=== PATIENT | male | born 1940 | race Caucasian/White ===

== ENCOUNTER → 2017-08-12 10:21 | Outpatient (CLI) | payer MEDICARE, OTHER, SELFPAY ==
[2017-08-12 12:08] LABS: AST(SGOT) 18 U/L (15-37); Alanine Aminotransfer ALT/SGPT 26 U/L (16-61); Alkaline Phosphatase 74 U/L (45-117); Bilirubin, Direct 0.27 mg/dL (0.00-0.30); Cholesterol 151 mg/dL (200); Globulin 3.3 g/dL (2.2-4.2); High Density Lipoprotein 55 mg/dL; Protein, Total 7.3 g/dL (6.4-8.2); Triglycerides 83 mg/dL; Very Low Density Lipoprotein 17 mg/dL (5-40)
== END ==
PROVIDERS: Family Provider Family Medicine; PCP Family Medicine; Visit Provider Internal Medicine Cardiovascular Disease
DX: R00.2 Palpitations (principal); I25.2 Old myocardial infarction
CPT/HCPCS: 36415; 80061; 80076

== ENCOUNTER → 2018-03-28 13:03 | Outpatient (CLI) | payer MEDICARE, OTHER, SELFPAY ==
--- NOTE | 2018-03-28 13:07 | CT_ITS ---
STUDY: CT CHEST WITH CONTRAST REASON FOR EXAM: Male, 77 years old. Follow-up examination for a sending aortic aneurysm. RADIATION DOSAGE (If Supplied By Facility): CTDIvol = ( 11.6 ) mGy, DLP = ( 738.2 ) mGycm TECHNIQUE: Transaxial imaging was performed following intravenous administration of 100 ml of Isovue 300 contrast material. Multiplanar coronal and sagittal images were reformatted. Individualized dose optimization techniques were used for this CT. COMPARISON: Comparison is made with prior examination dated November 11, 2016. FINDINGS: Small bilateral benign appearing axillary lymph nodes. Minimal increase in markings at the lung bases suggestive of atelectasis and/or scarring. There is no demonstrated pleural abnormality. Coronary artery calcification. Normal mediastinum. Normal hilar regions. Normal enhanced pulmonary arteries. The descending thoracic aorta measures 4.6 cm in transverse dimension. There is atherosclerotic calcification of the aortic arch with tortuosity and elongation of the aortic arch and descending thoracic aorta. There are multi-level degenerative changes of the thoracic spine. There is no demonstrated abnormality of the visualized upper abdomen. CT/Chest WITH Contrast IMPRESSION: The ascending thoracic aorta measures 4.6 cm in transverse dimension. The remainder of the examination is unchanged. Electronically Signed: Kaleb Walker MD at 15:25 EST Tel [phone], Service support ,
[2018-03-28 13:25] LABS: CREATININE FINGERSTICK 1.3 mg/dL (0.70-1.30)
--- OUTSIDE RECORDS SUMMARY | 2018-06-29 23:27 | XMS RPT_ITS ---
:1940 Author Organization [place] Support Name Relationship Address Phone LES LISSETH Unavailable [address] + [place] [address] R Unavailable Unavailable Unavailable TENA, SUSAN Unavailable [address] + [place] [address] LISSETH SALDANA Unavailable [address] + [place] [address] R Unavailable Unavailable Unavailable TENA, SUSAN Unavailable [address] + [place] [address] LISSETH SALDANA Unavailable [address] + [place] [address] R Unavailable Unavailable Unavailable TENA, SUSAN Unavailable [address] + [place] [address] LISSETH SALDANA Unavailable [address] + [place] [address] R Unavailable Unavailable Unavailable TENA, SUSAN Unavailable [address] + [place] [address] LISSETH SALDANA Unavailable [address] + [place] [address] R Unavailable Unavailable Unavailable TENA, SUSAN Unavailable [address] + [place] [address] LISSETH SALDANA Unavailable [address] + [place] [address] R Unavailable Unavailable Unavailable TENA, SUSAN Unavailable [address] + [place] [address] LISSETH SALDANA Unavailable [address] + [place] [address] R Unavailable Unavailable Unavailable TENA, SUSAN Unavailable [address] + [place] [address] LISSETH SALDANA Unavailable [address] + [place] [address] R Unavailable Unavailable Unavailable SUSAN TENA Unavailable [address] + [place] [address] Care Team Providers Name Role Phone THIEN ARANDA (SOCIAL SCIENCE TEACHER) Attending Unavailable CORNIELLO, THIEN Huggins (SOCIAL SCIENCE TEACHER) Referring Unavailable CORNIELLO, THIEN L (SOCIAL SCIENCE TEACHER) Referring Unavailable CORNIELLO, THIEN L (SOCIAL SCIENCE TEACHER) Referring Unavailable CORNIELLO, THIEN L (SOCIAL SCIENCE TEACHER) Attending Unavailable STEFFI MAGANA) Attending Unavailable CORNIELLO, THIEN Huggins (SOCIAL SCIENCE TEACHER) Referring Unavailable Moodispaw, Robert Attending Unavailable Moodispaw, Robert Referring Unavailable Elderbrock, Cyrus Primary Care Unavailable Moodispaw, Robert Attending Unavailable Elderbrock, Cyrus Referring Unavailable Menendez, Loulou Attending Unavailable Moodispaw, Robert Attending Unavailable Elderbrock, Cyrus Referring Unavailable Moodispaw, Robert Attending Unavailable Elderbrock, Cyrus Referring Unavailable Menendez, Loulou Attending Unavailable Moodispaw, Robert Attending Unavailable Elderbrock, Cyrus Referring Unavailable Moodispaw, Robert Attending Unavailable Moodispaw, Robert Referring Unavailable Elderbrock, Cyrus Primary Care Unavailable PROBLEMS PROBLEMS DATE TYPE CONDITION / CODE ATTENDING STATUS SOURCE 04/17/2018 Unknown E78.5 - Rboert García Active [facility] Hyperlipidemia, Community unspecified / Hospital E78.5(ICD-10) Repository 04/17/2018 Unknown I25.10 - Robert García Active [facility] Atherosclerotic heart Community disease of [facility] coronary artery Repository without angina pectoris / I25.10(ICD-10) 11/21/2017 Active Vitamin D deficiency, NA Active [facility] unspecified / Clinic Main E55.9(ICD-10) [place] Repository 11/21/2017 Active Peripheral vascular NA Active [facility] disease, unspecified Clinic Main / I73.9(ICD-10) [place] Repository 11/21/2017 Active Pain in right wrist / NA Active [place] M25.531(ICD-10) Clinic Main [place] Repository 08/12/2017 Unknown R00.2 - Palpitations Robert García Active [place] / R00.2(ICD-10) [facility] Repository 08/12/2017 Unknown I25.2 - Old Robert García myocardial infarction Community / I25.2(ICD-10) Hospital Repository 07/22/2017 Unknown Z95.5 - Presence of Robert García coronary angioplasty Community implant and graft / Hospital Z95.5(ICD-10) Repository 07/22/2017 Unknown I47.2 - Ventricular JuancarlosisRobert alvarez tachycardia / Community I47.2(ICD-10) Hospital Repository 07/22/2017 Unknown I71.2 - Thoracic JuancarlosisRobert alvarez aortic aneurysm, Community without rupture / Hospital I71.2(ICD-10) Repository 07/22/2017 Unknown I10 - Essential Robert García (primary) Community hypertension / Hospital I10(ICD-10) Repository PROCEDURES PROCEDURES No Procedure Records FoundRESULTS RESULTS CARDIOLOGY VISIT Observed: 04/17/2018 Status: F Source: [place] REPORT 4:08 PM [facility] REPOSITORY [facility] [facility] [address] [place] [address] OFFICE VISIT Date of Service: 04/17/18 MR#: [id number] Acct: [id number] Name: EL LASSITER Rep #: [id number] : 1940 Provider: Robert García MD Age/Sex: 77/M Location: [facility] Status: Signed HPI HPI Details: EL LASSITER, is a 77 M who presents to the office today for outpatient cardiovascular follow-up. From a cardiac standpoint he denies any ongoing symptoms of classic angina pectoris and there is been no evidence of overt CHF or pulmonary edema. There has been no near syncope or syncope. His lipid labs were checked in August 2017. They were under good control at that time. He has not had them checked since that time. He did have a chest CT scan performed in March 2018. His thoracic aorta-a sending-measured 4.6 cm. Intake Vital Signs04/17/18 Height 5 ft 9 in 04/17/18 Weight: 217 lb 04/17/18 Body Mass Index (BMI) 32.0 04/17/18 Blood Pressure 110/64 Intake Visit Reasons: 9 M FU Allergies atorvastatin [From Lipitor] Adverse Reaction (Severe, Verified 04/17/18 15:30) Heartburn, Itching Medications Aspirin [Aspirin, Baby] 81 mg PO DAILY@0800 10/26/14 [History Confirmed 04/17/18] levothyroxine 50 mcg capsule 50 mcg PO QDAY cap 06/10/17 [History Confirmed 04/17/18] metoprolol tartrate 25 mg tablet 25 mg PO .COMPLEX 06/10/17 [History Confirmed 04/17/18] nitroglycerin 0.4 mg sublingual tablet 0.4 mg SUBLINGUAL Q5M PRN 06/10/17 [History Confirmed 04/17/18] pravastatin 10 mg tablet 10 mg PO QHS 07/21/17 [History Confirmed 04/17/18] methylsulfonylmethane 1,000 mg capsule 1,000 mg PO ONCE PRN cap 07/22/17 [History Confirmed 04/17/18] multivitamin,yb-uhli-zcbakgni 27 mg-0.4 mg tablet 0.5 tab PO DAILY ea 07/22/17 [History Confirmed 04/17/18] aloe vera 25 mg capsule 600 mg PO DAILY PRN cap 04/17/18 [History Confirmed 04/17/18] cholecalciferol (vitamin D3) 1,000 unit tablet 1,000 unit PO DAILY 04/17/18 [History Confirmed 04/17/18] [facility] Medical History Nonsustained ventricular tachycardia (Acute) Old myocardial infarction (Acute) Palpitations (Acute) Thoracic aortic aneurysm (Chronic) Atherosclerotic heart disease of [place] coronary artery without angina pectoris (Chronic) Hypothyroidism (Chronic) HTN (hypertension) (Chronic) HLD (hyperlipidemia) (Chronic) SADAF (obstructive sleep apnea) (Acute) Paroxysmal ventricular tachycardia (Acute) Surgical History Presence of stent in coronary artery (Chronic) S/P LASIK surgery (Resolved) Postsurgical percutaneous transluminal coronary angioplasty (PTCA) status (Chronic) Cyst of left breast (Resolved) History of cholecystectomy (Resolved) History of lymph node biopsy (Resolved) Family History Mother CAD (coronary artery disease) Brother CAD (coronary artery disease) Myocardial infarction Social History Smoking Status: Former smoker alcohol intake: never substance use type: does not use ROS Const Const: Negative for fatigue, weakness, weight gain, weight loss, frequent falls or excessive sweating Eyes Eyes: Negative for change in vision, blurry vision or transient loss of vision ENT ENT: Negative for dizziness or balance problems Cardio Chest Pain: No Palpitations: No Edema: None Muscle aches with walking: None Resp Respiratory: Positive for SOB with activity (occasional, baseline); negative for SOB at rest GI GI: Negative vomiting or vomiting blood/hematemesis : Negative for hematuria Musc Musc: Negative for balance problems, muscle aches/ myalgia, muscle weakness or joint pain Skin Skin: Negative non-healing lesions or rash Neuro Neuro: Negative for weakness, blurry vision, dizziness, lightheadedness, frequent falls or orthostatic symptoms Roderick Hematologic/Lymphatic: Negative for easy bleeding Endo Endo: Negative for fatigue or excessive sweating Psych Psych: Negative for anxiety or depression Allergy Allergy/Immunology: Negative for hives, Negative for rash Cardiology Exam Const Appearance: cooperative, healthy appearing, comfortable, no acute distress, well developed and well groomed Nutritional Appearance: average body habitus, well nourished and overweight Head Head: normal to inspection, normocephalic and atraumatic Ears: hearing grossly normal bilaterally Nose: external nose normal Face and Sinus: face symmetric Mouth: oral mucosae normal Teeth and gingiva: fair dentition Eyes Eyelids: eyelids normal Conjunctivae: conjunctivae normal Pupils: PERRL EOM: EOM intact bilaterally Neck Neck: normal visual inspection and full ROM Carotids: normal carotid upstroke Chest Chest inspection: normal inspection of the chest, symmetric chest movement and respiratory distress Auscultation: Bilateral: Clear to Auscultation Cardio Palpation: normal PMI Rhythm: regular rhythm Heart sounds: S1 normal and S2 normal GI GI: normal to inspection, soft and bowel sounds present Neuro General: alert, awake, oriented x3 and moves all extremities Skin Skin: no rashes or lesions noted Extremities Pulses: Normal: Right Radial Pulse, Left Radial Pulse Lower Extremity Edema: None: Bilateral Psych Psychological: normal affect Assessment AND Plan 1. Atherosclerosis of [place] coronary artery of [place] heart without angina pectoris I25.10 PTCA/stent to OM and prox CX 09/29/01; PTCA/BMS to D1 and CHALO to LAD 03/28/09 Plan At the present time he appears to be doing well with no acute symptoms or adverse events. He will continue medical management. Orders Orders: 2. Presence of stent in coronary artery Z95.5 PTCA/stent to OM and prox CX 09/29/01; PTCA/BMS to D1 and CHALO to LAD 03/28/09 Plan He does have previous PCI as previously noted. He will continue medical management 3. Nonsustained ventricular tachycardia I47.2 Plan He has a history of ventricular ectopy. He is undergone noninvasive and invasive evaluation in the past. He has been treated with medical therapy and revascularization. He has been doing well with no obvious symptomatic events 4. Hyperlipidemia, unspecified hyperlipidemia type E78.5 Plan He will be scheduled for future fasting lipid and hepatic profile to monitor his lipid studies and his hepatic labs. Orders Orders: 5. Essential hypertension I10 Plan His blood pressure appears to be well controlled at this time. He will continue medical management. 6. Thoracic aortic aneurysm without rupture I71.2 Plan He does have an ascending aortic aneurysm. It was recently evaluated. There were no obvious complicating factors. He will continue to be followed. Plan Detail Additional Comments Thank you for allowing me to participate in the care of your patient. Please don't hesitate to call if any issues arise. This note was generated using a voice recognition system and there may be incorrect words, spelling or punctuation that were not noted when reviewing the office note prior to saving. Follow Up 6 Months (PFM) Coding Level of Care Code Off vis,est,level 4 Diagnoses Atherosclerosis of [place] coronary artery of [place] heart without angina pectoris I25.10 [place] vs. transplanted heart: [place] heart Presence of stent in coronary artery Z95.5 Nonsustained ventricular tachycardia I47.2 Hyperlipidemia, unspecified hyperlipidemia type E78.5 Hyperlipidemia type: unspecified Essential hypertension I10 Hypertension type: essential hypertension Thoracic aortic aneurysm without rupture I71.2 Presence of rupture: without rupture Coding Level of Care Code Off vis,est,level 4 Diagnoses Atherosclerosis of [place] coronary artery of [place] heart without angina pectoris I25.10 [place] vs. transplanted heart: [place] heart Presence of stent in coronary artery Z95.5 Nonsustained ventricular tachycardia I47.2 Hyperlipidemia, unspecified hyperlipidemia type E78.5 Hyperlipidemia type: unspecified Essential hypertension I10 Hypertension type: essential hypertension Thoracic aortic aneurysm without rupture I71.2 Presence of rupture: without rupture Supplemental Info Supplemental Information Labs LDL Cholesterol 79 mg/dL (0-130) 08/12/17 HDL Cholesterol 55 mg/dL (40-) 08/12/17 Triglycerides 83 mg/dL (-199) 08/12/17 VLDL Cholesterol 17 mg/dL (5-40) 08/12/17 Diagnostics Echocardiogram 09/10/14 04/17/18 1608 <Electronically signed by Robert García MD> Date Robert García MD Cosigner Signature: Date (if applicable) CC: Cyrus Sands MD CREATININE FINGERSTICK Collected: 03/28/2018 Status: F Source: [place] 1:14 PM [facility] [place] TYPE CODE TESTS RESULT OUT OF RANGE REFERENCE UNITS LAB L9100.0210 0.70-1.30 mg/dL Normal CREATININE WB 1.3 Performed By: #### L9100.0200 #### [facility] Point of Care [address] [place] [address] CHEST WITH CONTRAST Observed: 03/28/2018 Status: F Source: [place] 1:07 PM [facility] [place] [facility] Services [address] [place] [address] Chest WITH Contrast MR#: [id number] Acct: [id number] Name: EL LASSITER Rep #: [id number] : 1940 M 77 From: Kaleb Walker MD PCP: Cyrus Sands MD Status: REG CLI Study: Chest WITH Contrast Date of Exam: 03/28/18 Exam# [id number] Ordering Dr: Robert García MD STUDY: CT CHEST WITH CONTRAST REASON FOR EXAM: Male, 77 years old. Follow-up examination for a sending aortic aneurysm. RADIATION DOSAGE (If Supplied By Facility): CTDIvol = ( 11.6 ) mGy, DLP = ( 738.2 ) mGycm TECHNIQUE: Transaxial imaging was performed following intravenous administration of 100 ml of Isovue 300 contrast material. Multiplanar coronal and sagittal images were reformatted. Individualized dose optimization techniques were used for this CT. COMPARISON: Comparison is made with prior examination dated November 11, 2016. FINDINGS: Small bilateral benign appearing axillary lymph nodes. Minimal increase in markings at the lung bases suggestive of atelectasis and/or scarring. There is no demonstrated pleural abnormality. Coronary artery calcification. Normal mediastinum. Normal hilar regions. Normal enhanced pulmonary arteries. The descending thoracic aorta measures 4.6 cm in transverse dimension. There is atherosclerotic calcification of the aortic arch with tortuosity and elongation of the aortic arch and descending thoracic aorta. There are multi-level degenerative changes of the thoracic spine. There is no demonstrated abnormality of the visualized upper abdomen. CT/Chest WITH Contrast IMPRESSION: The ascending thoracic aorta measures 4.6 cm in transverse dimension. The remainder of the examination is unchanged. 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 Multiple benign nevi of upper and lower extremities, and trunk These diagnoses are benign, chronic, requiring only observation at this time. Patient will monitor for changes or symptoms and contact us. Follow-up as noted below or as needed. Chief Complaint: Patient presents with: Skin Check Subjective and Objective HPI: El Lassiter is a 77 year old male who presents for: Skin check. Desires: Total body skin check History of skin cancer?: No Lesions of particular concern?: No. PAST MEDICAL HISTORY Diagnosis Date - Anxiety - Aortic aneurysm (HCC) - Essential hypertension, benign - Heart attack (HCC) 2001 - Pneumonia 4-5 times, has scar tissue on lungs - Thyroid condition Current Outpatient Prescriptions on File Prior to Visit: pravastatin (PRAVACHOL) 10 mg tablet TAKE 1 TABLET BY MOUTH AT BEDTIME. levothyroxine (SYNTHROID) 100 mcg tablet TAKE ONE-HALF TABLET BY MOUTH EVERY DAY Saw Balaton 160 mg capsule Take 160 mg by mouth twice daily. as needed royal jelly 500 mg cap Take by mouth. as needed cholecalciferol (VITAMIN D3) 2,000 unit tablet Take 1 tablet by mouth twice daily. (Patient taking differently: Take 2,000 Units by mouth twice daily. 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 as needed multivitamin tablet Take 1 tablet by mouth once daily. COMPOUNDED PRESCRIPTION Take 1 tablet by mouth once daily. Vit C 240mg daily nitroglycerin sublingual 0.4 mg SUBLINGUAL SL tablet Dissolve 0.4 mg under the tongue every 5 minutes as needed. clopidogrel (PLAVIX) 75 mg ORAL tablet Take 37.5 mg by mouth once daily. MEDICATION, NON-DATABASE Loy MSM supplement Aspirin 81 mg ORAL Tab Take 40.5 mg by mouth. krjyuhjo-ajvlfpfjo-ewjhvbfgadaeey (CORTISPORIN) otic solution Use 3 Drops in both ears four times daily. (Patient not taking: Reported on 12/06/2017 ) COMPOUNDED PRESCRIPTION Taking Energy B 12 daily No current facility-administered medications on file prior to visit. ROS: General: Does the patient feel generally well? Yes Skin: Any other skin lesions of concern? No Any other ongoing rashes or itching? No Physical Exam: General: The patient appears generally well, non-toxic, and in no distress. Skin: The following areas were inspected and/or palpated and were unremarkable except as noted below: Scalp and hair; head (including the face and ears); neck;, chest (including breasts and axillae); abdomen; genitalia, groin, and buttocks; back; right upper extremity; left upper extremity; right lower extremity; left lower extremity; as well as the apocrine and eccrine glands which were inspected. Eyes: Inspection of conjunctivae and lids revealed no tumors or injection. Ears, Nose, Mouth and Throat: Inspection of the lips was unremarkable. Cardiovascular: Examination of peripheral vascular system by observation and palpation demonstrated no edema, infarcts or tenderness and was otherwise unremarkable. Extremities: Inspection and palpation of digits and nails demonstrated no infarcts, clubbing or other lesions. Neurological/Psychiatric: The patient's mood and affect are unremarkable, and appears oriented to person, place and knows date of . Positive findings: -scattered hyperpigmented macules on the torso, bilateral upper extremities and bilateral lower extremities. These are small, evenly hyperpigmented and regularly bordered with internal consistency between the lesions. -scattered fleshy papules on the torso. -scattered villagran red papules on the torso. -scattered hyperkeratotic, stuck on papules on the Face, back, bilateral lower extremities. Right medial back -- unremarkable. Previous biopsy sites on the superior chest and left forearm are healing well. Attending signature: Steffi Magana MD This note is completed at 3:26 PM on 12/06/2017 and reflects the services provided at the time of the appointment. I agree with the Chief Complaint, ROS, and Past Histories independently gathered by the clinical application support technician. CNOV Observed: 12/06/2017 Status: COMPLETED Source: [place] 2:40 PM [facility] REPOSITORY Office Visit (DERMST) EL LASSITER ([id number]) 1940 M Date Time Provider Department 12/06/17 2:40 PM STEFFI MAGANA) DERMST During your visit today, we recorded the following information about you: Steffi Magana MD 12/06/2017 3:27 PM Signed Department of Dermatology Steffi Magana MD 12/06/2017 Last visit in Dermatology: Visit date not found Assessment/Plan Problem List Items Addressed This Visit None Visit Diagnoses Seborrheic keratoses - Primary Capillary angioma Notalgia paresthetica Discussed use of capsaicin cream, pt asks about CBD products, but I have no data supporting their use. Multiple benign nevi of upper and lower extremities, and trunk These diagnoses are benign, chronic, requiring only observation at this time. Patient will monitor for changes or symptoms and contact us. Follow-up as noted below or as needed. Chief Complaint: Patient presents with: Skin Check Subjective and Objective HPI: El Lassiter is a 77 year old male who presents for: Skin check. Desires: Total body skin check History of skin cancer?: No Lesions of particular concern?: No. PAST MEDICAL HISTORY Diagnosis Date - Anxiety - Aortic aneurysm (HCC) - Essential hypertension, benign - Heart attack (HCC) 2001 - Pneumonia 4-5 times, has scar tissue on lungs - Thyroid condition Current Outpatient Prescriptions on File Prior to Visit: pravastatin (PRAVACHOL) 10 mg tablet TAKE 1 TABLET BY MOUTH AT BEDTIME. levothyroxine (SYNTHROID) 100 mcg tablet TAKE ONE-HALF TABLET BY MOUTH EVERY DAY Saw Balaton 160 mg capsule Take 160 mg by mouth twice daily. as needed royal jelly 500 mg cap Take by mouth. as needed cholecalciferol (VITAMIN D3) 2,000 unit tablet Take 1 tablet by mouth twice daily. (Patient taking differently: Take 2,000 Units by mouth twice daily. 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 as needed multivitamin tablet Take 1 tablet by mouth once daily. COMPOUNDED PRESCRIPTION Take 1 tablet by mouth once daily. Vit C 240mg daily nitroglycerin sublingual 0.4 mg SUBLINGUAL SL tablet Dissolve 0.4 mg under the tongue every 5 minutes as needed. clopidogrel (PLAVIX) 75 mg ORAL tablet Take 37.5 mg by mouth once daily. MEDICATION, NON-DATABASE Loy MSM supplement Aspirin 81 mg ORAL Tab Take 40.5 mg by mouth. zyomzosv-fljtichmw-chozfoablducec (CORTISPORIN) otic solution Use 3 Drops in both ears four times daily. (Patient not taking: Reported on 12/06/2017 ) COMPOUNDED PRESCRIPTION Taking Energy B 12 daily No current facility-administered medications on file prior to visit. ROS: General: Does the patient feel generally well? Yes Skin: Any other skin lesions of concern? No Any other ongoing rashes or itching? No Physical Exam: General: The patient appears generally well, non-toxic, and in no distress. Skin: The following areas were inspected and/or palpated and were unremarkable except as noted below: Scalp and hair; head (including the face and ears); neck;, chest (including breasts and axillae); abdomen; genitalia, groin, and buttocks; back; right upper extremity; left upper extremity; right lower extremity; left lower extremity; as well as the apocrine and eccrine glands which were inspected. Eyes: Inspection of conjunctivae and lids revealed no tumors or injection. Ears, Nose, Mouth and Throat: Inspection of the lips was unremarkable. Cardiovascular: Examination of peripheral vascular system by observation and palpation demonstrated no edema, infarcts or tenderness and was otherwise unremarkable. Extremities: Inspection and palpation of digits and nails demonstrated no infarcts, clubbing or other lesions. Neurological/Psychiatric: The patient's mood and affect are unremarkable, and appears oriented to person, place and knows date of . Positive findings: -scattered hyperpigmented macules on the torso, bilateral upper extremities and bilateral lower extremities. These are small, evenly hyperpigmented and regularly bordered with internal consistency between the lesions. -scattered fleshy papules on the torso. -scattered villagran red papules on the torso. -scattered hyperkeratotic, stuck on papules on the Face, back, bilateral lower extremities. Right medial back -- unremarkable. Previous biopsy sites on the superior chest and left forearm are healing well. Attending signature: Steffi Magana MD This note is completed at 3:26 PM on 12/06/2017 and reflects the services provided at the time of the appointment. I agree with the Chief Complaint, ROS, and Past Histories independently gathered by the clinical application support technician. Aiyana Badillo АННА 12/06/2017 3:29 PM Addendum Thank you for allowing me to examine you for signs of skin cancer today. We had an opportunity to discuss my findings and any treatments I recommended. I believe that there are several steps that a person can do to help prevent skin cancers and to detect them at an early, treatable stage: 1) I highly recommend that once a month you perform your own complete skin check looking for changing or unusual spots. Use a wall-mounted mirror and a hand mirror to assist in seeing body areas that are difficult to see otherwise. If you have a family member that can assist, this is often helpful. Additional information can be obtained at www.skincancer.org/okdm-kuzcgy-feghiyzyrrv/early-detection 2) In many cases, skin cancer can be prevented. The best way to protect yourself is to avoid too much sun and sunburns. Health care providers believe that ultraviolet rays (UV rays) from the sun damage the skin and over time lead to skin cancer. Here are ways to protect yourself: -Don't spend long periods of time in direct sunlight. -Wear hats with brims to protect your face and ears. -Wear long-sleeved shirts and pants to protect your arms and legs. -Use broad spectrum sunscreens with a SPF (skin protection factor) of 30 or higher that protect against burning and tanning rays. Apply the lotion 30 minutes before you go outside. (Broad-spectrum sunscreens protect against UV-B and UV-A rays.) -Wear sunglasses to protect your eyes. -Use a lip balm with sunscreen. -Avoid the sun between 10am and 4pm. -Show any changing mole to your health care provider. Q: How do I obtain a follow-up appointment in 12 months with the dermatology team at the [facility]? A: About 3 months prior to your desired appointment time, please contact our appointment center to request an appointment with the [facility]. You can either: * Call the central appointment number: [phone] * Request an appointment online at: [email or web address] Use your truedash appointment request function All of the clinical staff at [facility] work together as a closely-knit team to provide our patients the very best dermatologic care. Your follow-up appointment may be scheduled with one of our highly-trained Nurse Practitioners or Physician Assistants. 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 Multiple benign nevi of upper and lower extremities, and trunk [D22.70, D22.5, D22.60] Prescriptions as of 12/06/2017 Sig: PRAVASTATIN 10 MG TABLET TAKE 1 TABLET BY MOUTH AT BED* LEVOTHYROXINE 100 MCG TABLET TAKE ONE-HALF TABLET BY MOUTH* SAW PALMETTO 160 MG CAPSULE Take 160 mg by mouth twice da* ROYAL JELLY 500 MG CAPSULE Take by mouth. as needed CHOLECALCIFEROL (VITAMIN D3) * Take 1 tablet by mouth twice * Patient taking differently: Take 2,000 Units by mouth twi* COMPOUNDED PRESCRIPTION Please evaluate and adjust Bi* ALOE VERA ORAL Take by mouth once daily. as * * MULTIVITAMIN TABLET Take 1 tablet by mouth once d* * COMPOUNDED PRESCRIPTION Take 1 tablet by mouth once d* * NITROGLYCERIN 0.4 MG SUBLINGU* Dissolve 0.4 mg under the ton* * CLOPIDOGREL 75 MG TABLET Take 37.5 mg by mouth once da* * MEDICATION, NON-DATABASE Loy MSM supplement * ASPIRIN 81 MG TABLET Take 40.5 mg by mouth. UZJIUSQH-NHVCLJBIU-YTHEMACCA * Use 3 Drops in both ears four* Patient not taking: Reported on 12/06/2017 COMPOUNDED PRESCRIPTION Taking Energy B 12 daily Problem List As Of Date 12/06/2017 Noted Resolved Unspecified hypothyroidism [E03.9] INVALID FOR* CAD (coronary artery disease) [I25.10] INVALID FOR* Presence of stent in coronary artery [Z95.5] INVALID FOR* Aortic aneurysm [I71.9] INVALID FOR* Other and unspecified hyperlipidemia [E78.5] INVALID FOR* SADAF (obstructive sleep apnea) [G47.33] INVALID FOR* Depression [F32.9] INVALID FOR* Other instructions from your clinician: Thank you for allowing me to examine you for signs of skin cancer today. We had an opportunity to discuss my findings and any treatments I recommended. I believe that there are several steps that a person can do to help prevent skin cancers and to detect them at an early, treatable stage: 1) I highly recommend that once a month you perform your own complete skin check looking for changing or unusual spots. Use a wall-mounted mirror and a hand mirror to assist in seeing body areas that are difficult to see otherwise. If you have a family member that can assist, this is often helpful. Additional information can be obtained at www.skincancer.org/jsuq-ucotwf-jzllkgmjqho/early-detection 2) In many cases, skin cancer can be prevented. The best way to protect yourself is to avoid too much sun and sunburns. Health care providers believe that ultraviolet rays (UV rays) from the sun damage the skin and over time lead to skin cancer. Here are ways to protect yourself: -Don't spend long periods of time in direct sunlight. -Wear hats with brims to protect your face and ears. -Wear long-sleeved shirts and pants to protect your arms and legs. -Use broad spectrum sunscreens with a SPF (skin protection factor) of 30 or higher that protect against burning and tanning rays. Apply the lotion 30 minutes before you go outside. (Broad-spectrum sunscreens protect against UV-B and UV-A rays.) -Wear sunglasses to protect your eyes. -Use a lip balm with sunscreen. -Avoid the sun between 10am and 4pm. -Show any changing mole to your health care provider. Q: How do I obtain a follow-up appointment in 12 months with the dermatology team at the [facility]? A: About 3 months prior to your desired appointment time, please contact our appointment center to request an appointment with the [facility]. You can either: * Call the central appointment number: [phone] * Request an appointment online at: [email or web address] * Use your truedash appointment request function All of the clinical staff at [facility] work together as a closely-knit team to provide our patients the very best dermatologic care. Your follow-up appointment may be scheduled with one of our highly-trained Nurse Practitioners or Physician Assistants. Disposition: Return in 12 months (on 12/06/2018) for Skin Check. Follow-up and Disposition History Recorded Encounter Status:Closed by STEFFI MAGANA MD on 12/06/17 SURGICAL PATHOLOGY Observed: 11/29/2017 Status: F Source: [place] 12:24 PM [facility] REPOSITORY Specimen originated from [facility] Specimen #: [id number] Submitting Physician: THIEN ARANDA CNP FINAL DIAGNOSIS A. 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 B. Skin, left forearm, shave biopsy - Seborrheic keratosis. MELI/michele 11/30/2017 Elza Edouard M.D. (Electronic Signature) SPECIMEN SUBMITTED A: SKIN, NECK, SHAVE BIOPSY B: SKIN, LEFT FOREARM, SHAVE BIOPSY CLINICAL DATA lesion discoloration and irregular borders GROSS DESCRIPTION A. Received in formalin is a 1.0 x 0.9 x 0.1 cm shave of skin. On the skin surface is a 0.9 cm, brown flat area. The specimen is bisected. Totally submitted in formalin in one cassette. B. Received in formalin is a 0.8 x 0.4 x 0.1 cm shave of skin. On the skin surface is a 0.2 cm, brown flat area. The specimen is bisected. Totally submitted in formalin in one cassette. Gross examination performed at [facility], [address] [place] [address] MMD 11/30/2017 2:04:54 AM Date of Report: 11/30/2017 Date of Procedure: 11/29/2017 Date of Receipt: 11/29/2017 Submitted by: THIEN ARANDA CNP Location: [facility] Diagnostic interpretation performed at [facility], [address] [place] [address]. PROGRESS Observed: 11/29/2017 Status: COMPLETED Source: [place] 12:15 PM [facility] REPOSITORY HNO ID: [id number] Author: Thien Huggins (Celia) Rosi Service: (none) Author Type: Nurse Practitioner Type: Progress Notes Filed: 11/29/2017 12:28 PM Note Text: HPI/CC: El Lassiter is a 77 year old male who presents for Recheck (review results) and skin biopsies (2 spots- neck, L forearm) Also would like to review recent labs, PVRs and xrays. The following were reviewed with patient. Normal bilateral ABIs- 11/23/2017 Xray of right hand shows mild arthritis Component Latest Ref Rng AND Units 11/21/2017 WBC 3.70 - 11.00 k/uL 6.78 RBC 4.20 - 6.00 m/uL 5.01 Hemoglobin 13.0 - 17.0 g/dL 15.7 Hematocrit 39.0 - 51.0 % 47.0 MCV 80.0 - 100.0 fL 93.8 MCH 26.0 - 34.0 pG 31.3 MCHC 30.5 - 36.0 g/dL 33.4 RDW-CV 11.5 - 15.0 % 13.2 Platelet Count 150 - 400 k/uL 209 MPV 9.0 - 12.7 fL 10.2 Neut% % 66.9 Abs Neut (ANC) 1.45 - 7.50 k/uL 4.51 Lymph% % 24.8 Abs Lymph 1.00 - 4.00 k/uL 1.68 Garland% % 7.2 Abs Garland <0.87 k/uL 0.49 Eosin% % 0.7 Abs Eosin <0.46 k/uL 0.05 Baso% % 0.4 Abs Baso <0.11 k/uL 0.03 Nucleated Reds 0 /100 WBC 0.1 (H) Absolute nRBC <0.01 k/uL 0.01 (H) Diff Type Auto Diff Protein, Total 6.3 - 8.0 g/dL 6.8 Albumin 3.9 - 4.9 g/dL 4.2 Calcium 8.5 - 10.2 mg/dL 9.1 Bilirubin, Total 0.2 - 1.3 mg/dL 2.6 (H) Alkaline Phosphatase 36 - 108 U/L 70 AST 14 - 40 U/L 18 Glucose 74 - 99 mg/dL 99 BUN 9 - 24 mg/dL 13 Creatinine 0.73 - 1.22 mg/dL 1.00 Sodium 136 - 144 mmol/L 140 Potassium 3.7 - 5.1 mmol/L 4.3 Chloride 97 - 105 mmol/L 103 CO2 22 - 30 mmol/L 23 Anion Gap 9 - 18 mmol/L 14 ALT 10 - 54 U/L 18 eGFR- >60 eGFR-All Other Races . >60 Vitamin D 25 Hydroxy 31.0 - 80.0 ng/mL 22.5 (L) Continues to have left ear discomfort. 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 pravastatin (PRAVACHOL) 10 mg tablet TAKE 1 TABLET BY MOUTH AT BEDTIME. levothyroxine (SYNTHROID) 100 mcg tablet TAKE ONE-HALF TABLET BY MOUTH EVERY DAY Saw Balaton 160 mg capsule Take 160 mg by mouth twice daily. as needed royal jelly 500 mg cap Take by mouth. as needed cholecalciferol (VITAMIN D3) 2,000 unit tablet Take 1 tablet by mouth twice daily. (Patient taking differently: Take 2,000 Units by mouth twice daily. holding ) COMPOUNDED PRESCRIPTION Please evaluate and adjust BiPAP supplies/maskDx: G47.3 COMPOUNDED PRESCRIPTION Taking Energy B 12 daily ALOE VERA ORAL Take by mouth once daily. as needed multivitamin tablet Take 1 tablet by mouth once daily. COMPOUNDED PRESCRIPTION Take 1 tablet by mouth once daily. Vit C 240mg daily nitroglycerin sublingual 0.4 mg SUBLINGUAL SL tablet Dissolve 0.4 mg under the tongue every 5 minutes as needed. clopidogrel (PLAVIX) 75 mg ORAL tablet Take 37.5 mg by mouth once daily. MEDICATION, NON-DATABASE Loy MSM supplement Aspirin 81 mg ORAL Tab Take 40.5 mg by mouth. No current facility-administered medications on file prior to visit. ALLERGIES Allergen Reactions - Cleaning Products [* Other: See Comments Runny nose, cough ROS: See HPI PE/Assessment:: BP 128/84 Pulse 72 Resp 16 Wt 95.3 kg (210 lb) BMI 31.47 kg/m? General appearance: tired/ill appearing, in no acute distress, obese Skin: upper mid sternal skin discoloration, irregular color and borders, no s/s of infection or drainage. Measures 0.25in x 0.25in. Left distal forearm skin discoloration, irregular color and borders, no s/s of infection or drainage. Also measures 0.25in x 0.25in. Ear: normal canal and TM UNIVERSAL PROTOCOL / SAFETY CHECKLIST Procedure to be performed: skin biopsy x 2 Sign in Communication: Completed Time Out: Team Confirms the Correct Patient, Correct Procedure, Correct Site and Site Marking, Correct Position (if applicable), Prep and Dry Time (if applicable). Affirmation of Time Out: YES Sign Out Discussion: Completed Thien Aranda APRN.CELIA Procedure: The risks, benefits and anticipated outcomes of the procedure, the risks and benefits of the alternatives to the procedure, and the roles and tasks of the personnel to be involved, were discussed with the patient, and the patient consents to the procedure and agrees to proceed. ? The area was cleaned and prepped in a semi sterile fashion 1 specimen for pathology. Written and verbal wound care instructions given. ASSESSMENT/PLAN: 1. Skin lesions - ICD9: 709.9, ICD10: L98.9 (primary diagnosis) - shave biopsy completed x 2, patient tolerated well - see patient instructions- reviewed home care and when to follow up - samples sent to pathology 2. Vitamin D deficiency - ICD9: 268.9, ICD10: E55.9 - restart vit D BID and recheck in 3 months - VITAMIN D 25 HYDROXY 3. Left ear pain - ICD9: 388.70, ICD10: H92.02 - normal ear -f/u PRN Thien Aranda APRN.CNP CNOV Observed: 11/29/2017 Status: COMPLETED Source: [place] 11:00 [facility] REPOSITORY Office Visit (FAMPWS) EL LASSITER ([id number]) 1940 M Date Time Provider Department 11/29/17 11:00 AM TH[facility] ARANDA [facility]CELIA[facility] During your visit today, we recorded the following information about you: Pulse Respiration Blood pressure Weight 72/minute 16/minute 128/84 95.3 kg Thien Aranda APRN.CNP 11/29/2017 12:03 PM Signed Open wounds???The biopsy done today will heal from the bottom up and sides inward. Remove the adhesive bandage in 12 to 24 hours and clean it twice per day with soap and water. Apply a thin coat of Aquaphor then cover with an adhesive bandage. This type of wound heals faster when covered. If you have a lot of itching, redness, drainage of pus, swelling, or pain, call the office. Acetaminophen or ice packs may be used for pain control. Thien Aranda APRN.CNP 11/29/2017 12:28 PM Signed HPI/CC: El A Karina is a 77 year old male who presents for Recheck (review results) and skin biopsies (2 spots- neck, L forearm) Also would like to review recent labs, PVRs and xrays. The following were reviewed with patient. Normal bilateral ABIs- 11/23/2017 Xray of right hand shows mild arthritis Component Latest Ref Rng AND Units 11/21/2017 WBC 3.70 - 11.00 k/uL 6.78 RBC 4.20 - 6.00 m/uL 5.01 Hemoglobin 13.0 - 17.0 g/dL 15.7 Hematocrit 39.0 - 51.0 % 47.0 MCV 80.0 - 100.0 fL 93.8 MCH 26.0 - 34.0 pG 31.3 MCHC 30.5 - 36.0 g/dL 33.4 RDW-CV 11.5 - 15.0 % 13.2 Platelet Count 150 - 400 k/uL 209 MPV 9.0 - 12.7 fL 10.2 Neut% % 66.9 Abs Neut (ANC) 1.45 - 7.50 k/uL 4.51 Lymph% % 24.8 Abs Lymph 1.00 - 4.00 k/uL 1.68 Garland% % 7.2 Abs Garland <0.87 k/uL 0.49 Eosin% % 0.7 Abs Eosin <0.46 k/uL 0.05 Baso% % 0.4 Abs Baso <0.11 k/uL 0.03 Nucleated Reds 0 /100 WBC 0.1 (H) Absolute nRBC <0.01 k/uL 0.01 (H) Diff Type Auto Diff Protein, Total 6.3 - 8.0 g/dL 6.8 Albumin 3.9 - 4.9 g/dL 4.2 Calcium 8.5 - 10.2 mg/dL 9.1 Bilirubin, Total 0.2 - 1.3 mg/dL 2.6 (H) Alkaline Phosphatase 36 - 108 U/L 70 AST 14 - 40 U/L 18 Glucose 74 - 99 mg/dL 99 BUN 9 - 24 mg/dL 13 Creatinine 0.73 - 1.22 mg/dL 1.00 Sodium 136 - 144 mmol/L 140 Potassium 3.7 - 5.1 mmol/L 4.3 Chloride 97 - 105 mmol/L 103 CO2 22 - 30 mmol/L 23 Anion Gap 9 - 18 mmol/L 14 ALT 10 - 54 U/L 18 eGFR- >60 eGFR-All Other Races . >60 Vitamin D 25 Hydroxy 31.0 - 80.0 ng/mL 22.5 (L) Continues to have left ear discomfort. 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 pravastatin (PRAVACHOL) 10 mg tablet TAKE 1 TABLET BY MOUTH AT BEDTIME. levothyroxine (SYNTHROID) 100 mcg tablet TAKE ONE-HALF TABLET BY MOUTH EVERY DAY Saw Balaton 160 mg capsule Take 160 mg by mouth twice daily. as needed royal jelly 500 mg cap Take by mouth. as needed cholecalciferol (VITAMIN D3) 2,000 unit tablet Take 1 tablet by mouth twice daily. (Patient taking differently: Take 2,000 Units by mouth twice daily. holding ) COMPOUNDED PRESCRIPTION Please evaluate and adjust BiPAP supplies/maskDx: G47.3 COMPOUNDED PRESCRIPTION Taking Energy B 12 daily ALOE VERA ORAL Take by mouth once daily. as needed multivitamin tablet Take 1 tablet by mouth once daily. COMPOUNDED PRESCRIPTION Take 1 tablet by mouth once daily. Vit C 240mg daily nitroglycerin sublingual 0.4 mg SUBLINGUAL SL tablet Dissolve 0.4 mg under the tongue every 5 minutes as needed. clopidogrel (PLAVIX) 75 mg ORAL tablet Take 37.5 mg by mouth once daily. MEDICATION, NON-DATABASE Loy MSM supplement Aspirin 81 mg ORAL Tab Take 40.5 mg by mouth. No current facility-administered medications on file prior to visit. ALLERGIES Allergen Reactions - Cleaning Products [* Other: See Comments Runny nose, cough ROS: See HPI PE/Assessment:: BP 128/84 Pulse 72 Resp 16 Wt 95.3 kg (210 lb) BMI 31.47 kg/m? General appearance: tired/ill appearing, in no acute distress, obese Skin: upper mid sternal skin discoloration, irregular color and borders, no s/s of infection or drainage. Measures 0.25in x 0.25in. Left distal forearm skin discoloration, irregular color and borders, no s/s of infection or drainage. Also measures 0.25in x 0.25in. Ear: normal canal and TM UNIVERSAL PROTOCOL / SAFETY CHECKLIST Procedure to be performed: skin biopsy x 2 Sign in Communication: Completed Time Out: Team Confirms the Correct Patient, Correct Procedure, Correct Site and Site Marking, Correct Position (if applicable), Prep and Dry Time (if applicable). Affirmation of Time Out: YES Sign Out Discussion: Completed Thien Aranda APRN.CNP Procedure: The risks, benefits and anticipated outcomes of the procedure, the risks and benefits of the alternatives to the procedure, and the roles and tasks of the personnel to be involved, were discussed with the patient, and the patient consents to the procedure and agrees to proceed. ? The area was cleaned and prepped in a semi sterile fashion 1 specimen for pathology. Written and verbal wound care instructions given. ASSESSMENT/PLAN: 1. Skin lesions - ICD9: 709.9, ICD10: L98.9 (primary diagnosis) - shave biopsy completed x 2, patient tolerated well - see patient instructions- reviewed home care and when to follow up - samples sent to pathology 2. Vitamin D deficiency - ICD9: 268.9, ICD10: E55.9 - restart vit D BID and recheck in 3 months - VITAMIN D 25 HYDROXY 3. Left ear pain - ICD9: 388.70, ICD10: H92.02 - normal ear -f/u PRN Thien Aranda APRN.CNP Referring Provider: SELF [200] Allergies As of Date: 11/29/2017 Noted Allergy Reaction cleaning products [Other] 06/21/2011 14 - Other: See Comments Comments: Runny nose, cough Date Reviewed: 11/29/2017 Reviewed by: Thien Huggins (Celia) Rosi - Fully Assessed Reason for Visit: Recheck [92] Cmt: review results skin biopsies [Other] Cmt: 2 spots- neck, L forearm Primary Visit Diagnosis:Skin lesions [L98.9] Other Visit Diagnoses:Vitamin D deficiency [E55.9] Left ear pain [H92.02] Order(s):VITAMIN D 25 HYDROXY [SQVITD] Order #: [id number] [facility]URE SURGICAL PATHOLOGY [2810410] Order #: [id number] Prescriptions as of 11/29/2017 Sig: EGEPWNYT-ASUMTPGHS-KVGHAJTIE * Use 3 Drops in both ears four* PRAVASTATIN 10 MG TABLET TAKE 1 TABLET BY MOUTH AT BED* LEVOTHYROXINE 100 MCG TABLET TAKE ONE-HALF TABLET BY MOUTH* SAW PALMETTO 160 MG CAPSULE Take 160 mg by mouth twice da* ROYAL JELLY 500 MG CAPSULE Take by mouth. as needed CHOLECALCIFEROL (VITAMIN D3) * Take 1 tablet by mouth twice * Patient taking differently: Take 2,000 Units by mouth twi* COMPOUNDED PRESCRIPTION Please evaluate and adjust Bi* COMPOUNDED PRESCRIPTION Taking Energy B 12 daily ALOE VERA ORAL Take by mouth once daily. as * * MULTIVITAMIN TABLET Take 1 tablet by mouth once d* * COMPOUNDED PRESCRIPTION Take 1 tablet by mouth once d* * NITROGLYCERIN 0.4 MG SUBLINGU* Dissolve 0.4 mg under the ton* * CLOPIDOGREL 75 MG TABLET Take 37.5 mg by mouth once da* * MEDICATION, NON-DATABASE Loy MSM supplement * ASPIRIN 81 MG TABLET Take 40.5 mg by mouth. Problem List As Of Date 11/29/2017 Noted Resolved Unspecified hypothyroidism [E03.9] INVALID FOR* CAD (coronary artery disease) [I25.10] INVALID FOR* Presence of stent in coronary artery [Z95.5] INVALID FOR* Aortic aneurysm [I71.9] INVALID FOR* Other and unspecified hyperlipidemia [E78.5] INVALID FOR* SADAF (obstructive sleep apnea) [G47.33] INVALID FOR* Depression [F32.9] INVALID FOR* Other instructions from your clinician: Open wounds???The biopsy done today will heal from the bottom up and sides inward. Remove the adhesive bandage in 12 to 24 hours and clean it twice per day with soap and water. Apply a thin coat of Aquaphor then cover with an adhesive bandage. This type of wound heals faster when covered. If you have a lot of itching, redness, drainage of pus, swelling, or pain, call the office. Acetaminophen or ice packs may be used for pain control. Encounter Status:Closed by THIEN ARANDA CNP on 11/29/17 PROGRESS Observed: 11/21/2017 Status: COMPLETED Source: [place] 11:50 AM [facility] REPOSITORY HNO ID: [id number] Author: Thien Huggins (Air Tool Operator) [facility] Service: (none) Author Type: Nurse Practitioner Type: Progress Notes Filed: 11/21/2017 12:08 PM Note Text: HPI/CC: El Lassiter is a 77 year old male who presents for multiple issues. Left ear pain/itching: unknown period of time. Attempted peroxide. Right leg pain: pain increases with sitting. Reports LE fatigue, numbness, tingling and heaviness with prolonged ambulation. Achy feeling. Increased over the last month Right wrist pain: worsening over an unknown period of time. Pain increases with certain activities. Denies numbness, tingling or weakness. Takes ASA for the pain. Skin lesions: multiple skin lesions. Left forearm and mid chest lesions may have changed in size but unsure. ROS as above, otherwise non-contributory. Reviewed PMHx, PSHx, social Hx, medications and allergies. PHYSICAL EXAMINATION: BP 110/64 (BP Site: Right Arm, BP Position: Sitting, BP Cuff Size: Large Adult) Pulse 81 Temp 36.5 ?C (97.7 ?F) Resp 12 Ht 174 cm (5' 8.5) Wt 95.7 kg (211 lb 0.6 oz) SpO2 91% BMI 31.62 kg/m? General appearance: Well appearing, alert, in no acute distress, well-hydrated, well nourished. and Overweight Skin: Skin color, texture, turgor normal. Left forearm lesion irregular, flaky in texture. Mid chest lesion irregular shape and color Lungs: Lungs clear to auscultation. No wheezing, rhonchi, rales Heart: RRR without murmur, gallop, or rubs. No ectopy Ears: L TM - clear with good landmarks, canal with erythema and edema Right wrist: radial scaphoid- radial head tender to palpation. Right hand with MCP and PIP joint swelling ASSESSMENT/PLAN: 1. Pain in both lower extremities - ICD9: 729.5, ICD10: M79.604, M79.605 (primary diagnosis) 2. Claudication (HCC) - ICD9: 443.9, ICD10: I73.9 - CBC - PVR LEG WES [facility] LAB - COMP METABOLIC PANEL 3. Right wrist pain - ICD9: 719.43, ICD10: M25.531 - XR WRIST 2V AP/LAT RT - XR HAND GENERAL 3V PA/LAT/OBL RT 4. Vitamin D deficiency - ICD9: 268.9, ICD10: E55.9 - VITAMIN D 25 HYDROXY - CBC + DIFF 5. Otitis externa of left ear, unspecified chronicity, unspecified type - ICD9: 380.10, ICD10: H60.92 - CIPROFLOXACIN 0.2 %-HYDROCORTISONE 1 % EAR DROPS,SUSPENSION 6. Skin lesions - ICD9: 709.9, ICD10: L98.9 - schedule for removal- 40 min slot please. Thien Aranda APRN.SOCIAL SCIENCE TEACHER CBC AND DIFFERENTIAL Collected: 11/21/2017 Status: F Source: [place] 10:59 AM [facility] REPOSITORY TYPE CODE TESTS RESULT OUT OF REFERENCE UNITS RANGE LAB WBC 3.70-11.00 k/uL WBC 6.78 LAB RBC 4.20-6.00 m/uL RBC 5.01 LAB HGB 13.0-17.0 g/dL Hemoglobin 15.7 LAB HCT 39.0-51.0 % Hematocrit 47.0 LAB MCV 80.0-100.0 fL MCV 93.8 LAB MCH 26.0-34.0 pG MCH 31.3 LAB MCHC 30.5-36.0 g/dL MCHC 33.4 LAB RDWCV 11.5-15.0 % RDW-CV 13.2 LAB PLTCT 150-400 k/uL Platelet Count 209 LAB MPV 9.0-12.7 fL MPV 10.2 LAB ANEUT % Neut% 66.9 LAB AANEUT 1.45-7.50 k/uL Abs Neut 4.51 LAB ALYMP % Lymph% 24.8 LAB AALYMP 1.00-4.00 k/uL Abs Lymph 1.68 LAB AMONO % Garland% 7.2 LAB AAMONO <0.87 k/uL Abs Garland 0.49 LAB AEOS % Eosin% 0.7 LAB AAEOS <0.46 k/uL Abs Eosin 0.05 LAB ABASO % Baso% 0.4 LAB AABASO <0.11 k/uL Abs Baso 0.03 LAB AUNRBC 0 /100 WBC NRBCs High 0.1 LAB ABNRBC <0.01 k/uL Absolute High nRBC 0.01 LAB DTYP DTYPE Auto Diff Performed By: #### CBCDIF, VITD, CMP #### [facility] [address] [place] [address] VITAMIN D 25 HYDROXY Collected: 11/21/2017 Status: F Source: [place] 10:59 AM [facility] REPOSITORY TYPE CODE TESTS RESULT OUT OF REFERENCE UNITS RANGE LAB VITD 31.0-80.0 ng/mL Low Vitamin D 25 22.5 Hydroxy Result Comment: Classification of 25 [place] Vitamin D status: Insufficiency/Moderate Deficiency: < or = 30 ng/mL Sufficiency/Optimal Levels: 31 to 80 ng/mL Toxicity: > 100 ng/mL Test performed by chemiluminescent immunoassay. Performed By: #### CBCDIF, VITD, CMP #### [facility] [address] [place] [address] COMP METABOLIC PANEL Collected: 11/21/2017 Status: F Source: [place] 10:59 AM [facility] REPOSITORY TYPE CODE TESTS RESULT OUT OF REFERENCE UNITS RANGE LAB TP 6.3-8.0 g/dL Protein, Total 6.8 LAB ALB 3.9-4.9 g/dL Albumin 4.2 LAB CA 8.5-10.2 mg/dL Calcium, Total 9.1 LAB TBIL 0.2-1.3 mg/dL Bilirubin, High Total 2.6 LAB ALKP 36-108 U/L Alkaline Phosphatase 70 LAB AST 14-40 U/L AST 18 LAB GLU 74-99 mg/dL Glucose 99 Result Comment: The [place] [employer] Association (ADA) provides guidance for cutoff values for fasting glucose and random glucose. The ADA defines fasting as no caloric intake for at least 8 hours. Fas ting plasma glucose results between 100 to 125 mg/dL indicate increased risk for diabetes (prediabetes). Fasting plasma glucose results greater than or equal to 126 mg/dL meet the criteria for diagnosis of diabetes. In the absence of unequivocal hyperglycemia, results should be confirmed by repeat testing. In a patient with classic symptoms of hyperglycemia or hyperglycemic crisis, random plasma glucose results greater than or equal to 200 mg/dL meet the criteria for diagnosis of diabetes. Reference: Standards of Medical Care in Diabetes 2016, [place] [employer] Association. Diabetes Care. 2016.39(Suppl 1). LAB BUN 9-24 mg/dL BUN 13 LAB CRET 0.73-1.22 mg/dL Creatinine 1.00 LAB NA 136-144 mmol/L Sodium 140 LAB K 3.7-5.1 mmol/L Potassium 4.3 LAB CL 97-105 mmol/L Chloride 103 LAB CO2 22-30 mmol/L CO2 23 LAB AGAP 9-18 mmol/L Anion Gap 14 LAB ALT 10-54 U/L ALT 18 LAB GFRAA eGFR- Amer. >60 LAB GFRNAA . eGFR-All Other Races >60 Result Comment: eGFR (Estimated GFR) Units of measure: mL/min/1.73 meters squared eGFR is derived from the reexpressed MDRD Study equation using the following parameters: serum creatinine, age, gender and race. The creatinine assay has been calibrated to be traceable to IDMS. An eGFR <60 mL/min/1.73m2 for >3 months is consistent with chronic kidney disease. Refer to KDOQI guidelines for clinical interpretation. In patients with unstable renal function, e.g. those with acute kidney injury, the eGFR may not accurately reflect actual GFR. Performed By: #### CBCDIF, VITD, CMP #### [facility] [address] [place], [place] [address] XR WRIST 2V PA/LAT Observed: 11/21/2017 Status: F Source: [place] 10:28 AM [facility] REPOSITORY * * *Final Report* * * DATE OF EXAM: Nov 21 2017 10:28AM WOX [id number] - XR WRIST 2V PA/LAT RT / PROCEDURE REASON: Pain in right wrist * * * * Physician Interpretation * * * * HISTORY: Right wrist pain. COMPARISON: There are no prior relevant studies for comparison. RESULT: AP and lateral radiographs of the right wrist show no acute osseous, articular or soft tissue abnormality. Mild degenerative narrowing of the triscaphe joint. The first metacarpal carpal joint is reasonably preserved. Mild narrowing of the radiocarpal joint as well as some [id number]-[id number] apposition of the radial ulnar articulation with marginal spurring. The radiocarpal and intercarpal articulations are intact. IMPRESSION: Mild degenerative change. No acute bony process. High Lighter: SÁNCHEZ Transcribe Date/Time: Nov 21 2017 12:42P Dictated by : KIRSTEN BURNS MD This examination was interpreted and the report reviewed and electronically signed by: KIRSTEN BURNS MD on Nov 21 2017 12:45PM EST [id number] XR HAND 3V PA/LAT/OBL Observed: 11/21/2017 Status: F Source: [facility] 10:28 AM [facility] REPOSITORY * * *Final Report* * * DATE OF EXAM: Nov 21 2017 10:28AM WOX 5346 - XR HAND 3V PA/LAT/OBL RT / PROCEDURE REASON: Pain in right wrist * * * * Physician Interpretation * * * * HISTORY: Right hand and wrist pain COMPARISON: There are no prior relevant examinations available for comparison. RESULT: AP, lateral and oblique views of the right hand shows no acute osseous, articular or soft tissue abnormality. There is degenerative change with asymmetric joint space narrowing and periarticular osteophytosis involving the proximal and distal distal interphalangeal joints of the second through fifth digits and the interphalangeal joint of the thumb. Findings are compatible with osteoarthritis. There is no superimposed erosive process. IMPRESSION: Radiographic findings suggest osteoarthritis. High Lighter: SÁNCHEZ Transcribe Date/Time: Nov 21 2017 12:50P Dictated by : KIRSTEN BURNS MD This examination was interpreted and the report reviewed and electronically signed by: KIRSTEN BURNS MD on Nov 21 2017 12:51PM EST [id number] PROGRESS Observed: 11/21/2017 Status: COMPLETED Source: [place] 10:08 AM [facility] REPOSITORY HNO ID: [id number] Author: Brenden John (Rt) Service: (none) Author Type: Farm Instructor Type: Progress Notes Filed: 11/21/2017 10:30 AM Note Text: Radiology Service Progress Note PATIENT NAME: El Lassiter DATE OF SERVICE: November 21, 2017 TIME: 10:08 AM PATIENT IDENTITY VERIFICATION COMPLETED USING TWO (2) METHODS: Patient confirmed name verbally and Date of . PATIENT GENDER DATA: Male PATIENT RELEVANT IMPLANT DATA REVIEWED: Not Applicable RADIOLOGY DEPARTMENT: General X-ray: Exam(s) Completed: Upper Extremity X-Ray(s): Wrist, right and Hand, right : PERIPHERAL IV DATA: Not applicable SIGNED BY: RT Alvaro November 21, 2017 10:08 AM JULIA Observed: 11/21/2017 Status: COMPLETED Source: [place] 8:20 AM [facility] REPOSITORY Office Visit (FAMPWS) EL LASSITER ([id number]) 1940 M Date Time Provider Department 11/21/17 8:20 AM THIEN ARANDA ([facility]) FAMPWS During your visit today, we recorded the following information about you: Temperature Pulse Respiration Blood pressure 97.7 degrees 81/minute 12/minute 110/64 Weight Height 95.7 kg 1.74 m Thien Aranda APRN.CNP 11/21/2017 12:08 PM Signed HPI/CC: El Lassiter is a 77 year old male who presents for multiple issues. Left ear pain/itching: unknown period of time. Attempted peroxide. Right leg pain: pain increases with sitting. Reports LE fatigue, numbness, tingling and heaviness with prolonged ambulation. Achy feeling. Increased over the last month Right wrist pain: worsening over an unknown period of time. Pain increases with certain activities. Denies numbness, tingling or weakness. Takes ASA for the pain. Skin lesions: multiple skin lesions. Left forearm and mid chest lesions may have changed in size but unsure. ROS as above, otherwise non-contributory. Reviewed PMHx, PSHx, social Hx, medications and allergies. PHYSICAL EXAMINATION: BP 110/64 (BP Site: Right Arm, BP Position: Sitting, BP Cuff Size: Large Adult) Pulse 81 Temp 36.5 ?C (97.7 ?F) Resp 12 Ht 174 cm (5' 8.5) Wt 95.7 kg (211 lb 0.6 oz) SpO2 91% BMI 31.62 kg/m? General appearance: Well appearing, alert, in no acute distress, well-hydrated, well nourished. and Overweight Skin: Skin color, texture, turgor normal. Left forearm lesion irregular, flaky in texture. Mid chest lesion irregular shape and color Lungs: Lungs clear to auscultation. No wheezing, rhonchi, rales Heart: RRR without murmur, gallop, or rubs. No ectopy Ears: L TM - clear with good landmarks, canal with erythema and edema Right wrist: radial scaphoid- radial head tender to palpation. Right hand with MCP and PIP joint swelling ASSESSMENT/PLAN: 1. Pain in both lower extremities - ICD9: 729.5, ICD10: M79.604, M79.605 (primary diagnosis) 2. Claudication (HCC) - ICD9: 443.9, ICD10: I73.9 - CBC - PVR LEG WES VAS LAB - COMP METABOLIC PANEL 3. Right wrist pain - ICD9: 719.43, ICD10: M25.531 - XR WRIST 2V AP/LAT RT - XR HAND GENERAL 3V PA/LAT/OBL RT 4. Vitamin D deficiency - ICD9: 268.9, ICD10: E55.9 - VITAMIN D 25 HYDROXY - CBC + DIFF 5. Otitis externa of left ear, unspecified chronicity, unspecified type - ICD9: 380.10, ICD10: H60.92 - CIPROFLOXACIN 0.2 %-HYDROCORTISONE 1 % EAR DROPS,SUSPENSION 6. Skin lesions - ICD9: 709.9, ICD10: L98.9 - schedule for removal- 40 min slot please. Thien Aranda APRN.SOCIAL SCIENCE TEACHER Referring Provider: SELF [200] Allergies As of Date: 11/21/2017 Noted Allergy Reaction cleaning products [Other] 06/21/2011 14 - Other: See Comments Comments: Runny nose, cough Date Reviewed: 11/21/2017 Reviewed by: Ary Holm LPN - Fully Assessed Reason for Visit: Musculoskeletal Problem [69] Primary Visit Diagnosis:Pain in both lower extremities [M79.604, M79.605] Other Visit Diagnoses:Claudication (HCC) [I73.9] Right wrist pain [M25.531] Vitamin D deficiency [E55.9] Otitis externa of left ear, unspecified chronicity, unspecified type [H60.92] Skin lesions [L98.9] Order(s):PVR LEG WES VAS LAB [[id number]] Order #: [id number] FUTURE VITAMIN D 25 HYDROXY [SQVITD] Order #: [id number] FUTURE COMP METABOLIC PANEL [SQCMP] Order #: [id number] FUTURE XR WRIST 2V AP/LAT RT [[id number]] Order #: [id number] FUTURE CBC + DIFF [SQCBCDIF] Order #: [id number] FUTURE XR HAND GENERAL 3V PA/LAT/OBL RT [[id number]] Order #: [id number] FUTURE ciprofloxacin-hydrocortisone (CIPRO HC) otic suspensionUse 3 Drops in the left ear twice daily for 7 days.Disp: 1 BottleRfl: 0 XR WRIST GENERAL 3V PA/LAT/OBL RT [[id number]] Order #: [id number] FUTURE Prescriptions as of 11/21/2017 Sig: PRAVASTATIN 10 MG TABLET TAKE 1 TABLET BY MOUTH AT BED* LEVOTHYROXINE 100 MCG TABLET TAKE ONE-HALF TABLET BY MOUTH* SAW PALMETTO 160 MG CAPSULE Take 160 mg by mouth twice da* ROYAL JELLY 500 MG CAPSULE Take by mouth. as needed CHOLECALCIFEROL (VITAMIN D3) * Take 1 tablet by mouth twice * Patient taking differently: Take 2,000 Units by mouth twi* COMPOUNDED PRESCRIPTION Please evaluate and adjust Bi* ALOE VERA ORAL Take by mouth once daily. as * * MULTIVITAMIN TABLET Take 1 tablet by mouth once d* * COMPOUNDED PRESCRIPTION Take 1 tablet by mouth once d* * NITROGLYCERIN 0.4 MG SUBLINGU* Dissolve 0.4 mg under the ton* * MEDICATION, NON-DATABASE Loy MSM supplement CIPROFLOXACIN 0.2 %-HYDROCORT* Use 3 Drops in the left ear t* COMPOUNDED PRESCRIPTION Taking Energy B 12 daily * CLOPIDOGREL 75 MG TABLET Take 37.5 mg by mouth once da* * ASPIRIN 81 MG TABLET Take 40.5 mg by mouth. Problem List As Of Date 11/21/2017 Noted Resolved Unspecified hypothyroidism [E03.9] INVALID FOR* CAD (coronary artery disease) [I25.10] INVALID FOR* Presence of stent in coronary artery [Z95.5] INVALID FOR* Aortic aneurysm [I71.9] INVALID FOR* Other and unspecified hyperlipidemia [E78.5] INVALID FOR* SADAF (obstructive sleep apnea) [G47.33] INVALID FOR* Depression [F32.9] INVALID FOR* Prescriptions ordered this encounter Disp Refills Start End ZFQYEWVP-QJWNJY-MI-THONZONM 3.3 MG-3* 10 mL 0 11/21/2017 11/21/2017 Route: OTIC Sig: Use 3 Drops in the ears four times daily. CIPROFLOXACIN 0.2 %-HYDROCORTISONE 1* 1 Cesar* 0 11/21/2017 11/28/2017 Route: LEFT EAR Sig: Use 3 Drops in the left ear twice daily for 7 days. Medications Discontinued During This Encounter metoprolol tartrate, short acting, (* 12/09/2016 11/21/2017 Class: Historical Med Route: ORAL Sig: Take 0.5 tablets by mouth twice daily. Disc: Reason for discontinue is not on file. sertraline (ZOLOFT) 50 mg tablet 30 t* 5 08/03/2017 11/21/2017 Sig: TAKE ONE TABLET BY MOUTH ONCE A DAY. Patient not taking: Reported on 11/21/2017 Disc: Reason for discontinue is not on file. Cdlcvieq-Eksqqq-SC-Thonzonium (CORTI* 10 mL 0 11/21/2017 11/21/2017 Route: OTIC Sig: Use 3 Drops in the ears four times daily. Disc: Reason for discontinue is not on file. Encounter Status:Closed by THIEN ARANDA CNP on 11/21/17 [place] Observed: 08/16/2017 Status: COMPLETED Source: [place] 12:00 AM [facility] REPOSITORY Patient Outreach (INTMWH) EL LASSITER ([id number]) 1940 M Date Time Provider Department 08/16/17 [facility] During your visit today, we recorded the following information about you: Allergies As of Date: 08/16/2017 Noted Allergy Reaction cleaning products [Other] 06/21/2011 14 - Other: See Comments Comments: Runny nose, cough Date Reviewed: 03/11/2017 Reviewed by: Cristina Cochran Ma - Fully Assessed Visit Diagnosis:Medication management [Z79.899] Order(s):TSH BLD [SQTSH] Order #: [id number] FUTURE BASIC METABOLIC PNL [SQBMP] Order #: [id number] FUTURE LIPID PANEL BASIC [SQLIPB] Order #: [id number] FUTURE Prescriptions as of 08/16/2017 Sig: X SERTRALINE 50 MG TABLET TAKE ONE TABLET BY MOUTH ONCE* Patient not taking: Reported on 11/21/2017 PRAVASTATIN 10 MG TABLET TAKE 1 TABLET BY MOUTH AT BED* X LEVOTHYROXINE 100 MCG TABLET TAKE ONE-HALF TABLET BY MOUTH* SAW PALMETTO 160 MG CAPSULE Take 160 mg by mouth twice da* ROYAL JELLY 500 MG CAPSULE Take by mouth. as needed CHOLECALCIFEROL (VITAMIN D3) * Take 1 tablet by mouth twice * Patient taking differently: Take 2,000 Units by mouth twi* X METOPROLOL TARTRATE 25 MG TAB* Take 0.5 tablets by mouth twi* COMPOUNDED PRESCRIPTION Please evaluate and adjust Bi* COMPOUNDED PRESCRIPTION Taking Energy B 12 daily ALOE VERA ORAL Take by mouth once daily. as * * MULTIVITAMIN TABLET Take 1 tablet by mouth once d* * COMPOUNDED PRESCRIPTION Take 1 tablet by mouth once d* * NITROGLYCERIN 0.4 MG SUBLINGU* Dissolve 0.4 mg under the ton* * CLOPIDOGREL 75 MG TABLET Take 37.5 mg by mouth once da* * MEDICATION, NON-DATABASE Loy MSM supplement * ASPIRIN 81 MG TABLET Take 40.5 mg by mouth. Problem List As Of Date 08/16/2017 Noted Resolved Unspecified hypothyroidism [E03.9] INVALID FOR* CAD (coronary artery disease) [I25.10] INVALID FOR* Presence of stent in coronary artery [Z95.5] INVALID FOR* Aortic aneurysm [I71.9] INVALID FOR* Other and unspecified hyperlipidemia [E78.5] INVALID FOR* SADAF (obstructive sleep apnea) [G47.33] INVALID FOR* Depression [F32.9] INVALID FOR* Encounter Status:Closed by MAXIME PRODUSER on 01/20/18 LIVER PROFILE Collected: 08/12/2017 Status: F Source: [place] 10[place] [facility] [place] TYPE CODE TESTS RESULT OUT OF RANGE REFERENCE UNITS LAB L501.1500 6.4-8.2 g/dL Normal T PROT 7.3 LAB L501.1800 3.2-5.0 g/dL Normal ALB 4.0 LAB L501.1950 2.2-4.2 g/dL Normal GLOB 3.3 LAB L501.4100 15-37 U/L Normal AST 18 LAB L501.4305 45-117 U/L Normal ALK P 74 LAB L501.4405 16-61 U/L Normal ALT 26 LAB L501.4600 0.20-1.00 mg/dL High T BILI 4.30 LAB L501.4700 0.00-0.30 mg/dL Normal D BILI 0.27 Performed By: #### L500.3400, L500.4100 #### [facility] [address] [place], [place], [id number] LIPID PROFILE Collected: 08/12/2017 Status: F Source: [place] 10:30 AM [facility] [place] TYPE CODE TESTS RESULT OUT OF RANGE REFERENCE UNITS LAB L501.4900 200 mg/dL Normal CHOL 151 Result Comment: <200 mg/dL Desirable 200-240 mg/dL Borderline >240 mg/dL High Risk LAB L501.5000 mg/dL Normal TRIG 83 Result Comment: The drugs N-Acetylcysteine and Metamizole may falsely depress this assay. Serum Triglycerides Reference Interval Normal <150 mg/dL Borderline high 150 - 199 mg/dL High 200 - 499 mg/dL Very High > or = 500 mg/dL LAB L501.6400 mg/dL Normal HDL 55 Result Comment: The drugs N-Acetylcysteine and Metamizole may falsely depress this assay. Reference Range HDL <40 mg/dL Low HDL Cholesterol HDL >or= 60 mg/dL High HDL Cholesterol LAB L501.6500 0-130 mg/dL Normal LDL 79 LAB L501.6600 5-40 mg/dL Normal VLDL 17 Performed By: #### L500.3400, L500.4100 #### [facility] [address] [place], [place], [id number] CARDIOLOGY VISIT Observed: 07/22/2017 Status: F Source: [place] RE[place] 1:50 PM [facility] [place] [facility] [address] [place], [place] [address] OFFICE VISIT Date of Service: 07/22/17 MR#: [id number] Acct: [id number] Name: EL LASSITER Rep #: [id number] : 1940 Provider: Robert García MD Age/Sex: 76/M Location: [facility] Status: Signed HPI HPI Details: EL LASSITER, is a 76 M who presents to the office today for for outpatient cardiovascular follow-up. Overall since his last outpatient cardiovascular visit he states he is doing well. He is not complaining of any ongoing symptoms of classic angina pectoris nor has he had any overt episodes of CHF or pulmonary edema. There has been no near syncope or syncope. His lipids were checked in December 2016. They appear to be under reasonably good control at that time. His last chest CT scan was performed in November 2016. At that time his ascending aortic aneurysm was stable at 4.3 cm. He has not required any additional cardiovascular testing as an outpatient or an inpatient. His medications have been adjusted, with respect to decreasing and discontinuation of his beta blockers, based upon lower blood pressures. He states he has felt better since those adjustments. Intake Vital Signs07/22/17 Height 5 ft 9 in 07/22/17 Weight: 216 lb 07/22/17 Body Mass Index (BMI) 31.8 07/22/17 Blood Pressure 102/68 Intake Visit Reasons: 6 M FU Accompanied by: Self Is patient in pain?: Yes Allergies atorvastatin [From Lipitor] Adverse Reaction (Severe, Verified 07/22/17 13:14) Heartburn, Itching Medications Aspirin [Aspirin, Baby] 81 mg PO DAILY@0800 10/26/14 [History Confirmed 07/22/17] clopidogrel 75 mg tablet 75 mg PO QDAY tab 06/10/17 [History Confirmed 07/22/17] levothyroxine 50 mcg capsule 50 mcg PO QDAY cap 06/10/17 [History Confirmed 07/22/17] metoprolol tartrate 25 mg tablet 25 mg PO .COMPLEX 06/10/17 [History Confirmed 07/22/17] nitroglycerin 0.4 mg sublingual tablet 0.4 mg SUBLINGUAL Q5M PRN 06/10/17 [History Confirmed 07/22/17] pravastatin 10 mg tablet 10 mg PO QHS 07/21/17 [History Confirmed 07/22/17] methylsulfonylmethane 1,000 mg capsule 1,000 mg PO ONCE PRN cap 07/22/17 [History Confirmed 07/22/17] multivitamin,cn-lefy-omqafedh 27 mg-0.4 mg tablet 0.5 tab PO DAILY ea 07/22/17 [History Confirmed 07/22/17] royal jelly 500 mg capsule 500 mg PO QDAY ea 07/22/17 [History Confirmed 07/22/17] saw palmetto 500 mg capsule 1,000 mg PO QDAY PRN cap 07/22/17 [History Confirmed 07/22/17] [facility] Medical History Presence of stent in coronary artery (Chronic) Nonsustained ventricular tachycardia (Acute) Old myocardial infarction (Acute) Palpitations (Acute) Thoracic aortic aneurysm (Chronic) Atherosclerotic heart disease of [place] coronary artery without angina pectoris (Chronic) Hypothyroidism (Chronic) HTN (hypertension) (Chronic) HLD (hyperlipidemia) (Chronic) SADAF (obstructive sleep apnea) (Acute) Paroxysmal ventricular tachycardia (Acute) Surgical History Postsurgical percutaneous transluminal coronary angioplasty (PTCA) status (Chronic) Cyst of left breast (Resolved) History of cholecystectomy (Resolved) History of lymph node biopsy (Resolved) Family History Mother CAD (coronary artery disease) Brother CAD (coronary artery disease) Myocardial infarction Social History Smoking Status: Former smoker alcohol intake: never substance use type: does not use ROS Const Const: Negative for body ache, fever(s), chills, night sweats, daytime sleepiness, difficulty sleeping, weight gain, weight loss, increased appetite, poor appetite, anorexia, other, frequent falls, headache(s), weakness, fatigue or excessive sweating Eyes Eyes: Negative for blind spots, loss of peripheral vision, transient loss of vision, change in vision, floaters, tunnel vision, other, blurry vision or double vision ENT ENT: Positive for dizziness; negative for hearing loss, tinnitus, Nosebleed/epistaxis, post nasal drip, bleeding gums, hoarseness, neck pain, dry mouth, other, balance problems, headache(s), tongue swelling or lip swelling Cardio Chest Pain: No Palpitations: No Edema: None Muscle aches with walking: None Resp Respiratory: Positive for SOB with activity; negative for SOB at rest, SOB orthopnea\SOB lying down, Cough, Coughing up blood/hemoptysis, chest congestion, pain on inspiration, snoring, stridor, wheezing, crackles, paroxysmal nocturnal dyspnea or other GI GI: Negative nausea, vomiting, heartburn, constipation, belching, bloating, cramping, vomiting blood/hematemesis, bright, red blood in stools, black,tarry stools, loose stools, Difficulty Swallowing or other : Negative for hematuria, frequent nighttime urination/ nocturia, erectile dysfunction or abnormal vaginal bleeding Musc Musc: Positive for muscle aches/ myalgia; negative for muscle weakness, joint pain or balance problems Skin Skin: Negative redness, non-healing lesions, unusual bruising, skin ulcer, wounds, jaundice, other or rash Neuro Neuro: Positive for dizziness; negative for lightheadedness, near syncope, syncope, orthostatic symptoms, frequent falls, headache(s), weakness, confusion, memory loss, restless legs, blurry vision, double vision, vertigo, seizures, lack of coordination or other Roderick Hematologic/Lymphatic: Negative for easy bleeding, easy bruising, enlarged lymph nodes or other Endo Endo: Negative for fatigue, cold intolerance, heat intolerance, excessive sweating, flushing, increased thirst/drinking, increased hunger, hair loss, hair growth or other Psych Psych: Negative for anxiety, depression, thoughts of harming anyone, thoughts of harming yourself, visual hallucinations, panic attacks or audible hallucinations Allergy Allergy/Immunology: Negative for throat swelling, Negative for tongue swelling, Negative for hives, Negative for rash, Negative for lip swelling Cardiology Exam Const Appearance: cooperative, healthy appearing, comfortable, no acute distress, well developed and well groomed Nutritional Appearance: average body habitus, well nourished and overweight Head Head: normal to inspection, normocephalic and atraumatic Ears: hearing grossly normal bilaterally Nose: external nose normal Face and Sinus: face symmetric Mouth: oral mucosae normal Eyes General: appearance normal, both eyes and all related structures Eyelids: eyelids normal Conjunctivae: conjunctivae normal Pupils: PERRL EOM: EOM intact bilaterally Neck Neck: normal visual inspection and full ROM Carotids: normal carotid upstroke Chest Chest inspection: normal inspection of the chest and symmetric chest movement Auscultation: Bilateral: Clear to Auscultation Cardio Palpation: normal PMI Rhythm: regular rhythm Heart sounds: S1 normal and S2 normal GI GI: normal to inspection, soft, no hepatosplenomegaly and bowel sounds present Neuro General: alert, awake and oriented x3 Skin Skin: no rashes or lesions noted Extremities Pulses: Normal: Right Radial Pulse, Left Radial Pulse Lower Extremity Edema: None: Bilateral Psych Psychological: normal affect Assessment AND Plan 1. Atherosclerosis of [place] coronary artery of [place] heart without angina pectoris I25.10 PTCA/stent to OM and prox CX 09/29/01; PTCA/BMS to D1 and CHALO to LAD 03/28/09 Plan At the present time he is doing well without any obvious ongoing acute symptoms or adverse events. He will continue risk factor modification and medical therapy as tolerated. 2. Presence of stent in coronary artery Z95.5 PTCA/stent to OM and prox CX 09/29/01; PTCA/BMS to D1 and CHALO to LAD 03/28/09 Plan Again he has a history of previous PCI as described above. He appears to be stable at this time. He will continue medical management and follow-up. 3. Nonsustained ventricular tachycardia I47.2 Plan He has had no concerning episodes of cardiac dysrhythmias or associated symptoms or compromise. He will continue his ongoing evaluation and care. 4. Thoracic aortic aneurysm without rupture I71.2 Plan He will be scheduled for future follow-up chest CT scan to monitor his ascending aortic aneurysm. In the meantime he will continue his current medical management as tolerated. 5. Hyperlipidemia, unspecified hyperlipidemia type E78.5 Plan He will be scheduled for follow-up fasting lipid/hepatic profile to monitor his cardiovascular risk factors and adjust his medications as needed. 6. Essential hypertension I10 Plan His blood pressure appears to be within acceptable ranges at this time. He is doing better since his medication adjustment. He will continue to be followed. Plan Detail Other Orders Orders: Additional Comments Overall he will be scheduled for an outpatient visit in the future. In the meantime he will proceed with his cardiovascular risk factor assessment and with his future chest CT scan to monitor his ascending aortic aneurysm-as noted above. Thank you for allowing me to participate in the care of your patient. Please don't hesitate to call if any issues arise. This note was generated using a voice recognition system and there may be incorrect words, spelling or punctuation that were not noted when reviewing the office note prior to saving. 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 transplanted heart: [place] heart Presence of stent in coronary artery Z95.5 Nonsustained ventricular tachycardia I47.2 Thoracic aortic aneurysm without rupture I71.2 Presence of rupture: without rupture Hyperlipidemia, unspecified hyperlipidemia type E78.5 Hyperlipidemia type: unspecified Essential hypertension I10 Hypertension type: essential hypertension Coding Level of Care Code Off vis,est,level 4 Diagnoses Atherosclerosis of [place] coronary artery of [place] heart without angina pectoris I25.10 [place] vs. transplanted heart: [place] heart Presence of stent in coronary artery Z95.5 Nonsustained ventricular tachycardia I47.2 Thoracic aortic aneurysm without rupture I71.2 Presence of rupture: without rupture Hyperlipidemia, unspecified hyperlipidemia type E78.5 Hyperlipidemia type: unspecified Essential hypertension I10 Hypertension type: essential hypertension 07/22/17 1350 <Electronically signed by Robert García MD> Date Robert García MD Cosigner Signature: Date (if applicable) CC: Cyrus Sands MD ALLERGIES ALLERGIES DATE TYPE / CODE NAME / CODE REACTION SEVERITY SOURCE 04/17/2018 Drug atorvastati Heartburn, SV [place] Allergy/[id number](S n/[id number] Itching [facility] NOMED CT) 1(RXNORM) Hospital Repository 06/21/2011 Miscellaneous OTHER OTHER: SEE C [facility] Allergy/[id number](S [facility] NOMED CT) Repository ENCOUNTERS ENCOUNTERS ADMIT/DISCHARGE ACCOUNT ADMITTING ENCOUNTER LOCATION SOURCE NUMBER CLASS 04/17/2018/04/17/19 [id number] Ambulatory BMSBuilding:B [place] [facility] Hospital Repository 03/28/2018 [id number] Ambulatory [facility] Hospital ing:CT Repository 12/06/2017/12/08/19 [id number] Ambulatory [address] [place] Repository 11/29/2017/12/01/19 [id number] Ambulatory [address] [place] Repository 11/23/2017/11/29/19 [id number] Ambulatory [address] [place] Repository 11/21/2017/11/22/19 [id number] Ambulatory [address] [place] Repository 11/21/2017/11/22/19 [id number] Ambulatory [address] Repository 11/21/2017/11/23/19 [id number] Ambulatory [address] Repository 08/12/2017 [id number] [facility] ing:LAB Repository 07/27/2017 [id number] Ambulatory BMSBuilding:B T[place] [facility] Repository 07/22/2017/07/23/19 [id number] Ambulatory BMSBuilding:B [place] [address] [facility] Repository 07/21/2017 [id number] Ambulatory BMSBuilding:B [place] [facility] Repository 07/21/2017 [id number] Ambulatory BMSBuilding:B [place] [facility] Repository 06/10/2017 [id number] Ambulatory BMSBuilding:B [place] [facility] Repository PAYERS PAYERS ENCOUNTER GUARANTOR PAYER SUBSCRIBER SOURCE 04/17/2018 EL A Primary EL A AURELIAB: Tushar [id number] Insurance:MEDICARE [id number] BPolicy Number: [place], [place] [id number] Repository [address]Uxa: (330) Date:2017-07-22 [phone] () 04/17/2018 Secondary EL A AURELIAB: [place] Insurance:HUMANA [id number] Number: Repository [id number] Date:4265-08-27[address] [address]PL: 04/17/2018 Tertiary NOT GIVENUNK [place] Insurance:SELF PAY [facility] Number: Effective Repository Date:2018-04-12 03/28/2018 EL A Primary EL LASSITERDOB: [place] [id number] Insurance:MEDICARE [id number] Community MARY PART A BPolicy Number: [place], [place] [id number] Repository [address]Hrb: 330) Date:2018-03-17 [phone] () 03/28/2018 Secondary EL A KARINADOB: [place] Insurance:HUMANA [id number] [facility]als [facility] Hospital Number: Repository [id number] Date:4180-99-91FK [address] [address]BF: 03/28/2018 Tertiary NOT GIVENUNK [place] Insurance:SELF PAY Community [facility] Hospital Number: Effective Repository Date:2018-03-17 08/12/2017 EL A Primary EL LASSITERDOB: [place] [id number] Insurance:MEDICARE [id number] Community MARY PART A BPolicy Number: [place], [place] [id number] Repository [address]15[address]Tmk: (330) Date:2017-08-12 [phone] () 08/12/2017 Secondary EL LASSITERDOB: [place] Insurance:HUMANA [id number] [facility] Hospital Number: Repository [id number] Date:4982-28-61YC [address] [place] [address]UZ: 08/12/2017 Tertiary NOT GIVENUNK [place] Insurance:SELF PAY Community [facility] Hospital Number: Effective Repository Date:2017-08-12 07/27/2017 El A Primary El A KarinaDOB: [place] [id number] Insurance:MEDICARE [id number] Community Mary PART A BPolicy Number: [place], [place] [id number] Repository [address]Cid: (330) Date:2017-03-28 [phone] () 07/27/2017 Secondary El A KarinaDOB: [place] Insurance:HUMANA [id number] [facility] Hospital Number: Repository [id number] Date:5598-30-73KI [address] [address]AI: 07/27/2017 Tertiary NOT GIVENUNK [place] Insurance:SELF PAY Community [facility] Hospital Number: Effective Repository Date:2017-03-28 07/22/2017 EL A Primary EL A MAASDOB: Tushar [id number] Insurance:MEDICARE [id number] Community MARY PART A BPolicy Number: [place], [place] [id number] Repository [address]Qgx: (330) Date:2017-07-07 [phone] () 07/22/2017 Secondary EL A KARINADOB: [place] Insurance:HUMANA [id number] [facility] Hospital Number: Repository [id number] Date:3588-67-49KY [address] [place] [address]UI: 07/22/2017 Tertiary NOT GIVENUNK [place] Insurance:SELF PAY [facility] Hospital Number: Effective Repository Date:2017-07-22 07/21/2017 El A Primary El A MakayceeDOB: Tushar [id number] Insurance:MEDICARE [id number] Community Mary PART A BPolicy Number: [place], [place] [id number] Repository [address]Xci: (330) Date:2017-07-07 [phone] () 07/21/2017 Secondary El A MakayceeDOB: [place] Insurance:HUMANA [id number] [facility] Hospital Number: Repository [id number] Date:3346-19-44HR [address] [address]HE: 07/21/2017 Tertiary NOT GIVENUNK Tushar Insurance:SELF PAY [facility] Hospital Number: Effective Repository Date:2017-07-07 07/21/2017 El A Primary El A MakayceeDOB: [place] [id number] Insurance:MEDICARE [id number] Community Mary PART A BPolicy Number: [place], [place] [id number] Repository [address]Hbr: (330) Date:2017-07-21 [phone] (HP) 07/21/2017 Secondary El ShayB: [place] Insurance:HUMANA [id number] Hospitals [facility] Hospital Number: Repository [id number] Date:7312-20-85WG [address] [place] [address]IL: 07/21/2017 Tertiary NOT GIVENUNK Tushar Insurance:SELF PAY [facility] Hospital Number: Effective Repository Date:2017-07-21 06/10/2017 El A Primary El LassiterDOB: Tushar [id number] Insurance:MEDICARE [id number] Community Mary PART A BPolicy Number: [place], [place] [id number] Repository [address]Ejn: (330) Date:2017-06-10 [phone] (HP) 06/10/2017 Secondary El ShayB: Tushar Insurance:HUMANA [id number] Hospitals [facility] Hospital Number: Repository [id number] Date:5053-52-67GG [address] [address]GC: 06/10/2017 Tertiary NOT GIVENUNK Tushar Insurance:SELF PAY [facility] Number: Effective Repository Date:2017-06-10
== END ==
PROVIDERS: Family Provider Family Medicine; PCP Family Medicine; Referring Provider Internal Medicine Cardiovascular Disease; Visit Provider Internal Medicine Cardiovascular Disease
DX: R00.2 Palpitations (principal)
CPT/HCPCS: 71260; Q9967

== ENCOUNTER → 2018-05-15 14:41 | Outpatient (CLI) | payer MEDICARE, OTHER, SELFPAY ==
[2018-04-17 15:30] VITALS: BMI 32.0
[2018-05-15 15:55] LABS: AST(SGOT) 13 U/L (15-37); Alanine Aminotransfer ALT/SGPT 27 U/L (16-61); Alkaline Phosphatase 75 U/L (45-117); Bilirubin, Direct 0.38 mg/dL (0.00-0.30); Cholesterol 156 mg/dL (200); Globulin 3.5 g/dL (2.2-4.2); High Density Lipoprotein 55 mg/dL; Protein, Total 7.5 g/dL (6.4-8.2); Triglycerides 111 mg/dL; Very Low Density Lipoprotein 22 mg/dL (5-40)
== END ==
PROVIDERS: Family Provider Family Medicine; PCP Family Medicine; Referring Provider Internal Medicine Cardiovascular Disease; Visit Provider Internal Medicine Cardiovascular Disease
DX: I25.10 Atherosclerotic heart disease of native coronary artery without angina pectoris (principal); E78.5 Hyperlipidemia, unspecified
CPT/HCPCS: 36415; 80061; 80076

== ENCOUNTER → 2019-04-13 12:51 | Outpatient (CLI) | payer MEDICARE, OTHER, SELFPAY ==
[2018-10-23 13:26] VITALS: BMI 32.1
--- NOTE | 2019-04-13 12:53 | CT_ITS ---
STUDY: CT CHEST WITH CONTRAST REASON FOR EXAM: Male, 78 years old. Follow up thoracic aortic aneurysm. RADIATION DOSAGE (If Supplied By Facility): CTDIvol = ( 16.13 ) mGy, DLP = ( 660.72 ) mGycm TECHNIQUE: Transaxial imaging was performed following intravenous administration of IV 100mL Isovue-300. Individualized dose optimization techniques were used for this CT. COMPARISON: 03/28/2018 FINDINGS: The lungs are normal. There is no demonstrated pleural abnormality. Normal heart and pericardium. Normal mediastinum. Normal hilar regions. Normal enhanced pulmonary arteries. No change in the 4.6 cm aneurysm of the ascending aorta likely from chronic hypertension or aortic stenosis. Normal osseous structures. There is no demonstrated abnormality of the visualized upper abdomen. CT/Chest WITH Contrast IMPRESSION: No change in 4.6 cm aneurysm ascending aorta likely from chronic hypertension or aortic stenosis Electronically Signed: Jose Enrique Wyatt MD at 14:11 EST Tel , Service support ,
[2019-04-13 13:11] LABS: CREATININE FINGERSTICK 1.4 mg/dL (0.70-1.30)
== END ==
PROVIDERS: Family Provider Family Medicine; PCP Family Medicine; Referring Provider Internal Medicine Cardiovascular Disease; Visit Provider Internal Medicine Cardiovascular Disease
DX: I71.2 Thoracic aortic aneurysm, without rupture (principal)
CPT/HCPCS: 71260; Q9967

== ENCOUNTER → 2019-05-09 11:19 | Outpatient (CLI) | payer MEDICARE, OTHER, SELFPAY ==
[2019-05-09 09:44] VITALS: BMI 33.6
[2019-05-09 12:39] LABS: AST(SGOT) 15 U/L (15-37); Alanine Aminotransfer ALT/SGPT 33 U/L (16-61); Albumin, Serum 3.7 g/dL (3.2-5.0); Alkaline Phosphatase 75 U/L (45-117); Bilirubin, Direct 0.43 mg/dL (0.00-0.30); Cholesterol 166 mg/dL (200); Globulin 3.5 g/dL (2.2-4.2); High Density Lipoprotein 57 mg/dL; Protein, Total 7.2 g/dL (6.4-8.2); Triglycerides 95 mg/dL; Very Low Density Lipoprotein 19 mg/dL (5-40)
== END ==
PROVIDERS: PCP Family Medicine; Referring Provider Physician Assistant Medical; Visit Provider Physician Assistant Medical
DX: I25.10 Atherosclerotic heart disease of native coronary artery without angina pectoris (principal); I10 Essential (primary) hypertension; E78.5 Hyperlipidemia, unspecified
CPT/HCPCS: 36415; 80061; 80076

== ENCOUNTER → 2020-04-07 13:40 | Outpatient (CLI) | payer MEDICARE, OTHER, SELFPAY ==
[2020-03-24 14:26] VITALS: BMI 32.8
--- NOTE | 2020-04-07 13:53 | CT_ITS ---
HISTORY: THORACIC AORTIC ANEURYSM- FOLLOW UP TECHNIQUE: Helically acquired images were obtained of the chest following the intravenous administration of 100 ML of Isovue-370 Iodinated contrast. as per pulmonary angiogram protocol with 2D no 3-D MIP reconstructions. A radiation dose optimization technique was used for this scan. COMPARISON: The [address] angiograms of the chest are from April 13, 2019, March 28, 2018, November 11, 2016, and October 09, 2015. FINDINGS: # of images incl. paperwork: 907 Airspace disease with air bronchograms and consolidation is present within the left lower lobe this disease is new since the previous study. There is some elevation of the left hemidiaphragm posteriorly. This is slightly greater than the most recent study. Overall lungs are hyperexpanded.. No effusions. Within the thoracic spinethere is a kyphosis with multilevel degenerative disc disease. Vertebral body height is narrowed at many levels within the mid to lower lumbar spine due to Schmorl's node invaginations and degenerative changes. Vacuum disc phenomenon is present at several levels. Facets are well aligned. No rib lesions are perceived. Heart is not enlarged.Coronary artery calcific ASCVD is severe. The right ventricle may be slightly dilated. This is similar to the previous study Thoracic aorta tortuous with atherosclerosis. The ascending thoracic aorta, at the level of the origin of the left main pulmonary artery is dilated to 5.4 x 4.4 cm on today's study. Trying to measure exactly the same area on the previous April 13, 2019 study, I measure 4.3 x 5 cm. Due to differences in the distention of the vessel with different stages of the cardiac cycle, I cannot perceived at this is significantly larger. The oldest study opened for comparison is from October 09, 2015. Trying to measure again at exactly the same level as best as possible, in 2016, my measurements measured the ascending thoracic aorta to be 4.3 x 5.3 cm, not a significant change from today's study, suggesting instability.. No stenoses, dissections, nor occlusions. No axillary or mediastinal adenopathy. No pulmonary emboli. The gallbladder has been resected. The liver is fattily infiltrated. CT/Chest WITH Contrast IMPRESSION: No pulmonary embolism,, or aortic dissection. 5.4 x 4.4 cm ascending thoracic aortic aneurysm. Accounting for where the patient is in the cardiac cycle at the time this area was imaged, volume status, cursor placement, and slice chosen on which to measure the ascending thoracic aorta, I do not perceive any significant growth in the aneurysm since the study from October 09, 2015. New left lower lobe airspace disease with increased elevation of left hemidiaphragm. This may represent pneumonia. Individualized dose optimization techniques were used for this CT. at 0658 Reported and signed by: John Ramos MD Electronically Signed: John Ramos MD at 6:57 EST Tel , Service support ,
[2020-04-07 14:31] LABS: AST(SGOT) 32 U/L (15-37); Alanine Aminotransfer ALT/SGPT 26 U/L (16-61); Albumin, Serum 3.7 g/dL (3.2-5.0); Alkaline Phosphatase 83 U/L (45-117); Cholesterol 171 mg/dL (200); Creatinine, Serum 1.21 mg/dL (0.70-1.30); EST Glomerular Filtration Rate 62 mL/min (>60); Est Glom Filt Rate - Afr Amer 75 mL/min (>60); Globulin 3.8 g/dL (2.2-4.2); High Density Lipoprotein 55 mg/dL; Protein, Total 7.5 g/dL (6.4-8.2); Thyroid Stim Hormone (TSH) 3.47 uIU/mL (0.358-3.74); Triglycerides 109 mg/dL; Very Low Density Lipoprotein 22 mg/dL (5-40)
== END ==
PROVIDERS: PCP Family Medicine; Referring Provider Internal Medicine Cardiovascular Disease; Visit Provider Internal Medicine Cardiovascular Disease
DX: I71.2 Thoracic aortic aneurysm, without rupture (principal); I25.10 Atherosclerotic heart disease of native coronary artery without angina pectoris; E78.5 Hyperlipidemia, unspecified; E03.9 Hypothyroidism, unspecified
CPT/HCPCS: 36415; 71260; 80061; 80076; 82565; 84443; Q9967

== ENCOUNTER → 2020-12-24 12:16 | Outpatient (CLI) | payer MEDICARE, OTHER, SELFPAY ==
[2020-12-24 14:44] LABS: AST(SGOT) 51 U/L (15-37); Alanine Aminotransfer ALT/SGPT 31 U/L (16-61); Albumin, Serum 3.4 g/dL (3.2-5.0); Alkaline Phosphatase 69 U/L (45-117); Bilirubin, Direct 0.27 mg/dL (0.00-0.30); Cholesterol 160 mg/dL (200); Globulin 4.4 g/dL (2.2-4.2); High Density Lipoprotein 59 mg/dL; Protein, Total 7.8 g/dL (6.4-8.2); Triglycerides 125 mg/dL; Very Low Density Lipoprotein 25 mg/dL (5-40)
== END ==
PROVIDERS: PCP Family Medicine; Visit Provider Internal Medicine Cardiovascular Disease
DX: E78.00 Pure hypercholesterolemia, unspecified (principal)
CPT/HCPCS: 36415; 80061; 80076